=== PATIENT | female | born 1980 | race Hispanic/Latino ===

== ENCOUNTER 2017-11-18 07:56 | Emergency (ER) | payer BC ==
[~2017-11-18] VITALS: Ht 162.6 cm; Wt 91.6 kg
[2017-11-18] MEDS ORDERED: KETOROLAC TROMETHAMINE 60 MG/2 ML VIAL IM ONE (08:15)
[2017-11-18] MEDS ORDERED: HYDROCODONE/APAP 5MG-325MG TAB PO ONE (08:15)
[2017-11-18] MEDS ORDERED: ONDANSETRON HCL 4 MG ORAL DISINTEGRATING TAB PO ONE (08:15)
[2017-11-18] MEDS ORDERED: PREDNISONE 20 MG TAB PO ONE (08:15)
[2017-11-18 08:56] LABS: CLARITY,URINE CLEAR (CLEAR); COLOR,URINE YELLOW (YELLOW)
[2017-11-18 08:57] LABS: BILIRUBIN,URINE NEGATIVE (NEGATIVE); KETONES,URINE NEGATIVE (NEGATIVE); LEUKOCYTE ESTERASE ,URINE NEGATIVE (NEGATIVE); NITRITE,URINE NEGATIVE (NEGATIVE); PROTEIN,URINE DIPSTICK NEGATIVE (NEGATIVE); URINE UROBILINOGEN 0.2 mg/dL (0.2 - 1)
--- NOTE | 2017-11-18 09:16 | Diagnostic Imaging Report ---
EXAMINATION: CT of the lumbar spine HISTORY: Acute low back pain when trying to sit down and stand up, pain is 8/10. COMPARISON: None available TECHNIQUE: Multidetector helical axial images were obtained without contrast from L1 to S1. The images were reconstructed using bone and soft tissue algorithms and were viewed in axial, sagittal, and coronal planes. Dose modulation, iterative reconstruction, and/or weight based adjustment of the mA/kV was utilized to reduce the radiation dose to as low as reasonably achievable. FINDINGS: Alignment: Normal alignment and lordosis. Vertebral bodies: Normal height and density. Paraspinal muscles: Normal. Intervertebral disks: L1-L2: Normal. L2-L3: Normal. L3-L4: Normal. L4-L5: Very minimal disc bulge without stenosis. L5-S1: Approximately 5 mm AP diameter right subarticular disc protrusion is partially effacing the right lateral recess, with flattening of the right ventral thecal sac and possible minimal displacement of the traversing right S1 nerve root. IMPRESSION: Small right subarticular disc protrusion at L5-S1, otherwise no lumbar spine abnormalities. Signed by: Dr. Maru Santana M.D. on 11/18/2017 9:12 AM
[2017-11-18 09:30] LABS: EPITHELIAL CELLS,URINE FEW /LPF
== END 2017-11-18 10:02 | disposition home or self-care (01) ==
LOC: ER 07:56
DX: M54.42 Lumbago with sciatica, left side (principal); M54.16 Radiculopathy, lumbar region; M51.26 Other intervertebral disc displacement, lumbar region
CPT/HCPCS: 72131; 81001; 99284; J1885